=== PATIENT | female | born 1965 | race Caucasian/White ===

== ENCOUNTER 2017-09-02 07:30 | Inpatient (IN) ==
[2017-08-26 12:40] LABS: Appearance,Urine CLEAR; Bacteria,Urine 0 /hpf (0); Bilirubin,Urine NEG (NEG); Color,Urine YELLOW; Glucose,Urine (UA) 50 mg/dL (NEG); Leukocyte Esterase,Urine 25 /uL (NEG); Mucus,Urine FEW /hpf (0); Protein,Urine NEG (NEG); Specific Gravity,Urine 1.016 (1.000-1.035); Urine Blood NEG mg/dL (<0.03); Urine RBC 1 /hpf (0-1); Urine Squamous Epithelial Cell 2 /hpf (0-4); Urine WBC 3 /hpf (0-4); Urobilinogen,Urine NEG (NEG)
[2017-08-26 13:52] LABS: Basophils # (Auto) 0.1 K/mcL (0.0-0.3); Basophils % (Auto) 0.5 % (0.0-2.0); Eosinophils # (Auto) 0.4 K/mcL (0.0-0.7); Eosinophils % (Auto) 2.4 % (0.0-7.0); Granulocytes % (Auto) 71.7 % (38.0-78.0); Lymphocytes # (Auto) 2.9 K/mcL (1.5-4.8); Lymphocytes % (Auto) 18.7 % (15.5-49.0); Mean Cell Volume 87.5 fL (80.0-100.0); Mean Corpuscular HGB Conc 33.9 g/dL (31.0-36.0); Mean Corpuscular Hemoglobin 29.6 pg (26.0-34.0); Monocytes # (Auto) 1.1 K/mcL (0.1-0.9); Monocytes % (Auto) 6.7 % (1.0-12.0); Platelet Count 307 K/mcL (140-440); RBC 5.07 M/mcL (4.00-5.20); Red Cell Distribution Width 15.3 % (11.5-14.5)
[2017-08-26 14:07] LABS: Blood Urea Nitrogen 17 mg/dl (6-20)
[~2017-09-02 07:30] MED LIST: CELECOXIB 200 MG CAPSULE PO SCH; KETOROLAC 30 MG, ROPIVACAINE HCL/PF 49.5 ML, EPINEPHrine 0.5 MG, 0.9 % SODIUM CHLORIDE ... IJ SCH; PREGABALIN 75 MG CAPSULE PO SCH; ceFAZolin 1 GM VIAL IV SCH; oxyCODONE 10 MG TAB.ER.12H PO SCH
[2017-09-02] MEDS ORDERED: fentaNYL 250 MCG/5 ML VIAL IV ONE (13:30)
[2017-09-02] MEDS ORDERED: LIDOCAINE HCL/PF 100 MG/5 ML SYRINGE IV ONE (13:30)
[2017-09-02] MEDS ORDERED: PROPOFOL 200 MG/20 ML VIAL IV ONE (13:30)
[2017-09-02] MEDS ORDERED: MAGNESIUM SULFATE 2 GM/50 ML BAG IV ONE ×2 (13:30→14:37)
[2017-09-02] MEDS ORDERED: methylPREDNISolone SOD SUCC 125 MG/2 ML VIAL IV ONE (13:30)
[2017-09-02] MEDS ORDERED: DEXAMETHASONE 10 MG/ML VIAL IV ONE (13:30)
[2017-09-02] MEDS ORDERED: GLYCOPYRROLATE 0.2 MG/ML VIAL IV ONE (13:30)
[2017-09-02] MEDS ORDERED: ROPIVACAINE HCL/PF 20 ML VIAL IJ ONE (13:30)
[2017-09-02] MEDS ORDERED: KETAMINE 100 MG/ML ML IV ONE (13:30)
[2017-09-02] MEDS ORDERED: TRANEXAMIC ACID 1,000 MG/10 ML VIAL IV ONE (13:30)
[2017-09-02] MEDS ORDERED: MIDAZOLAM 5 MG/5 ML VIAL IV ONE (13:30)
[2017-09-02] MEDS ORDERED: ESMOLOL 100 MG/10 ML VIAL IV ONE (13:30)
[2017-09-02] MEDS ORDERED: TERBUTALINE 1 MG/ML VIAL SQ ONE (14:37)
[2017-09-02] MEDS ORDERED: TRANEXAMIC ACID 1,000 MG/10 ML VIAL IV SCH (15:05)
[2017-09-02] MEDS ORDERED: BENZOCAINE/MENTHOL 1 LOZENGE PO PRN ×2 (15:05→17:20)
[2017-09-02] MEDS ORDERED: ONDANSETRON 4 MG/2 ML VIAL IV PRN ×3 (15:05→17:20)
[2017-09-02] MEDS ORDERED: BISACODYL 10 MG SUPP.RECT PR PRN ×2 (15:05→17:20)
[2017-09-02] MEDS ORDERED: MAGNESIUM HYDROXIDE 30 ML ORAL.SUSP PO PRN ×2 (15:05→17:20)
[2017-09-02] MEDS ORDERED: POLYETHYLENE GLYCOL 3350 17 GM PACKET PO PRN ×2 (15:05→17:20)
[2017-09-02] MEDS ORDERED: HYDROcodone/APAP 10/325MG TABLET PO PRN (15:05)
[2017-09-02] MEDS ORDERED: FLEETS ADULT ENEMA PR PRN ×2 (15:05→17:20)
--- NOTE | 2017-09-02 15:05 | Brief Operative Note ---
Date of procedure: 09/02/17 Pre-op diagnosis: Left knee DJD Post-op diagnosis: same Procedure: Left robotic assisted total knee arthroplasty Grafts/Implants: Yes (Angel 4 femur, 3 tibia, 9mm insert, 33 patella) Anesthesia: spinal, GLMA Findings: arthritis Complications: none Surgeon: Celso Coe Gel Coat Sprayer: Adam Brunner Estimated blood loss (cc): 30 Specimens Removed/Pathology: none sent Condition: stable Disposition: PACU
[2017-09-02] MEDS ORDERED: IPRATROPIUM/ALBUTEROL 3 ML AMPUL.NEB NEB ONE (15:07)
[2017-09-02] MEDS ORDERED: DEXTROSE 50% 50 ML VIAL IV PRN ×2 (15:10→17:20)
[2017-09-02] MEDS ORDERED: DEXTROSE 31 GM ORAL.SUSP PO PRN ×2 (15:10→17:20)
[2017-09-02] MEDS ORDERED: 0.9 % SODIUM CHLORIDE 1,000 ML IV SCH ×2 (15:15→17:20)
[2017-09-02] MEDS ORDERED: RACEPINEPHRINE 0.5 ML AMPUL.NEB ONE (15:36)
[2017-09-02] MEDS ORDERED: ATROPINE SULFATE 0.4 MG/ML VIAL IV PRN (15:41)
[2017-09-02] MEDS ORDERED: diphenhydrAMINE 50 MG/ML VIAL IV PRN (15:41)
[2017-09-02] MEDS ORDERED: METOPROLOL TARTRATE 5 MG/5 ML VIAL IV PRN (15:41)
[2017-09-02] MEDS ORDERED: ePHEDrine 50 MG/ML AMPUL IV PRN (15:41)
[2017-09-02] MEDS ORDERED: METHOCARBAMOL 1,000 MG/10 ML VIAL IV PRN (15:41)
[2017-09-02] MEDS ORDERED: FLUMAZENIL 0.1 MG/ML ML IV PRN (15:41)
[2017-09-02] MEDS ORDERED: IPRATROPIUM/ALBUTEROL 3 ML AMPUL.NEB NEB PRN ×2 (15:41→15:49)
[2017-09-02] MEDS ORDERED: NALOXONE HCL 0.4 MG/ML VIAL IV PRN (15:41)
[2017-09-02] MEDS ORDERED: fentaNYL 100 MCG/2 ML VIAL IV PRN (15:41)
[2017-09-02] MEDS ORDERED: ACETAMINOPHEN 1,000 MG/100 ML BOTTLE IV ONE (15:41)
[2017-09-02] MEDS ORDERED: FLUMAZENIL 0.1 MG/ML ML IV ONE (15:45)
[2017-09-02] MEDS ORDERED: LACTATED RINGERS 1,000 ML IV SCH (15:45)
[2017-09-02] MEDS ORDERED: ONDANSETRON ODT 4 MG TABLET SL PRN ×2 (15:49→17:20)
--- NOTE | 2017-09-02 16:10 | XRay Report ---
INDICATION: Hypoxia. Status post knee arthroplasty TECHNIQUE: AP chest x-ray,semiupright portable COMPARISON: Previous chest x-rays dated 04/01/2017, 09/27/2016, 12/07/2015 FINDINGS:Prominent pulmonary vascularity consistent with pulmonary congestion. There is mild bronchial wall thickening. Findings are consistent with mild interstitial edema. No alveolar edema. No consolidation. No pneumothorax. IMPRESSION: 1. Findings consistent with interstitial pulmonary edema. 2. No acute pulmonary congestion. Interpreted and Authenticated by: Geo Rodriguez 09/02/17
--- NOTE | 2017-09-02 16:31 | XRay Report ---
CLINICAL INFORMATION: Postsurgical follow-up TECHNIQUE: Portable AP, crosstable lateral, patellar views COMPARISON: None. FINDINGS: Status post left total knee arthroplasty. Prosthetic complements are in anatomic positions. There is soft tissue and intra-articular gas. There are skin hudson anteriorly. IMPRESSION: Status post left total knee arthroplasty Interpreted and Authenticated by: Geo Rodriguez 09/02/17
[2017-09-02] MEDS ORDERED: KETOROLAC 30 MG/ML VIAL IV ONE (16:36)
[2017-09-02] MEDS ORDERED: INSULIN LISPRO 1 UNIT/0.01 ML UNIT SQ SCH (17:00)
[2017-09-02] MEDS ORDERED: OMEPRAZOLE 20 MG CAPSULE PO SCH (17:00)
[2017-09-02] MEDS ORDERED: ACETAMINOPHEN 650 MG/65 ML BOTTLE IV PRN (17:20)
[2017-09-02] MEDS ORDERED: metFORMIN 500 MG TABLET PO SCH (17:30)
[2017-09-02] MEDS ORDERED: CARVEDILOL 12.5 MG TABLET PO SCH (17:30)
--- NOTE | 2017-09-02 18:28 | Consultation ---
DATE OF CONSULTATION: 09/02/2017 DATE OF CONSULTATION: 09/02/2017 REASON FOR CONSULTATION: Postoperative hypoxia, shallow breathing, confused state. REQUESTING PHYSICIAN: Celso Coe MD HISTORY OF CHIEF COMPLAINT: The patient is a 52-year-old with known history of COPD, DM type 2/hypertension and degenerative joint disease who underwent left robotic-assisted total knee arthroplasty. However, during the postoperative phase, the patient became increasingly short of breath along with increasing somnolence. The patient had a stat ABG done which revealed 7.34/51/51 on 7 liters oxygen. Because of concerns of severe hypoxia, x-ray was done which revealed bilateral infiltrates suggestive of pulmonary edema, received dose of Lasix and subsequently Hospitalist Service was consulted. At the time of evaluation, the patient is starting to wake up from postoperative anesthesia. She is currently started on noninvasive ventilation in light of hypercapnic acidosis and profound hypoxemia. She was able to answer some of the questions. She denies chest pain. She frequently dozes off but is able to tolerate BiPAP. Most of the history was obtained from review of medical records. The patient is immediate postop under sedation and unable to provide any history. She, however, denies headache, vision changes, endorses shortness of breath. REVIEW OF SYSTEMS: Ten-point review of system was attempted, could not be performed. PAST MEDICAL HISTORY: 1. History of diabetes mellitus type 2. 2. Degenerative joint disease. 3. Obesity. 4. COPD. 5. Peptic ulcer disease. 6. Anxiety disorder. 7. Hypertension. CURRENT MEDICATIONS: 1. Amitriptyline 25. 2. Amlodipine 5 twice daily. 3. Bupropion 150 mg twice daily. 4. Coreg 12.5 twice daily. 5. Duloxetine 60 at bedtime. 6. 20 twice daily. 7. Sucralfate 1 gram daily. 8. Hydrocodone/acetaminophen 10/325 mg every 4 hours as needed. 9. Glargine 14 units subcu daily. 10. Metformin 1000 twice daily. 11. Zofran 4 every 4 hours as needed. 12. Pramipexole 0.5 twice daily. 13. Tizanidine 4 mg three times daily. ALLERGIES: 1. BUPRENORPHINE. 2. LOSARTAN. 3. MIDAZOLAM. 4. HYDROCHLOROTHIAZIDE. SOCIAL HISTORY: Reviewed from medical records. The patient is and lives alone. She is retired, has one child. Every day smoker carrying over a [id number] history of smoking. No history of alcoholism or substance abuse. FAMILY HISTORY: Extensive with diabetes mellitus type 2, hypertension, coronary artery disease along with cancer in father, sister with bone cancer, diabetes, hypertension. Mother with diabetes, coronary artery disease, hypertension and renal cell carcinoma. PAST SURGICAL HISTORY: 1. Hysterectomy in 1996. 2. Left knee surgery 1999. 3. Shoulder surgery 2007 involving right AC joint repair. 4. Left knee arthroscopy 2016. 5. Right foot surgery 2014. PHYSICAL EXAMINATION: GENERAL: The patient is sedated currently on BiPAP, able to respond to verbal commands, open eyes to verbal stimulus. BMI 34.9. Height 5 feet 6 inches. VITAL SIGNS: Blood pressure 123/98, respiratory rate 15, temperature 98.1, pulse 96, sats 99 percent on 40 percent FIO2 BiPAP. HEENT: Pupils symmetric. Oral cavity is dry. No ear or nose discharge. Head is normocephalic and atraumatic. NECK: No lymphadenopathy. CHEST: S1, S2, tachycardia. ESM grade 1. Diminished breath sounds at bases. ABDOMEN: Soft. LOWER EXTREMITIES: No cyanosis, clubbing, edema. Left lower extremity covered in postoperative dressing. PSYCH: Sedated but responds to verbal commands. No agitation. NEURO: Nonfocal moving all 4 extremities, responding appropriately to verbal commands. SKIN: No suspicious lesion. LABS: Stat labs pending. ABG 7.34/51/51 on 7 liters oxygen. Repeat ABG pending. X-RAY CHEST: Interstitial pulmonary edema. ASSESSMENT AND PLAN: 1. A 52-year-old with acute hypoxic hypercapnic respiratory failure, postoperative phase. 2. Hospitalist consultation for acute hypoxic hypercapnic respiratory failure. Start patient on noninvasive ventilation. The patient is more awake after Versed reversal. Continue noninvasive ventilation, check a repeat ABG in half an hour. Continue close monitoring in telemetry. Likely secondary to intraoperative stress with volume overload. The patient was started on Lasix with target to clear interstitial edema as seen on imaging. blood work along with repeat ABG in half an hour. The patient will be transferred to telemetry unit. Continue BiPAP to ensure ventilation and reversal of hypercapnia and hypoxia. 3. Other prior medical issues will be restarted on home medications, includinA. Anxiety disorder, started on bupropion, Cymbalta. 3B. History of diabetes mellitus type 2. Continue basal prandial insulin. 3C. Pain management will be on as-needed opioids. 3D. Hypertension will be continued on Coreg/amlodipine. 3E. History of peptic ulcer disease. Continue sucralfate/proton pump inhibitor. 3F. Deep venous thrombosis prophylaxis will be as per orthopedics. CODE STATUS: FULL CODE Overall, a high-complexity consult in this patient with hypercapnic hypoxic respiratory failure requiring noninvasive ventilation. TIME SPENT: Over 35 minutes CC timein evaluating labs and imaging, blood gases, management of noninvasive ventilation, care coordination and transferring patient to telemetry unit. AA:ken Job ID: [id number] Doc ID: [id number] Mino Porter MD MTDHoa
[2017-09-02 18:29] LABS: Mean Cell Volume 86.3 fL (80.0-100.0); Mean Corpuscular HGB Conc 33.4 g/dL (31.0-36.0); Mean Corpuscular Hemoglobin 28.8 pg (26.0-34.0); Platelet Count 287 K/mcL (140-440); RBC 5.36 M/mcL (4.00-5.20); Red Cell Distribution Width 15.4 % (11.5-14.5)
[2017-09-02 18:52] LABS: ALT/SGPT 37 U/l (0-40); Albumin 4.3 gm/dL (3.2-5.2); Albumin/Globulin Ratio 1.4 (1.0-2.3); Alkaline Phosphatase 73 U/L (39-117); Bilirubin,Direct < 0.2 mg/dL (0.0-0.3); Blood Urea Nitrogen 18 mg/dl (6-20); Gamma Glutamyl Transpeptidase 35 U/L (5-36); Uric Acid 5.2 mg/dL (2.5-8.0)
[2017-09-02 19:01] LABS: Band Neutrophils % 9 % (0-10); Eosinophils % (Manual) 2 % (0-7); Lymphocytes % 8 % (15-49); Monocytes % (Manual) 2 % (1-12); Platelet Estimate NORMAL (NORMAL); RBC Morphology NORMAL (NORMAL); Segmented Neutrophils % 79 % (38-78)
[2017-09-02] MEDS: CARVEDILOL 12.5 MG TABLET PO SCH (19:34)
[2017-09-02] MEDS: metFORMIN 500 MG TABLET PO SCH (19:34)
[2017-09-02] MEDS: PRAMIPEXOLE 0.25 MG TABLET PO SCH (20:41)
[2017-09-02] MEDS: buPROPion 150 MG TAB.SR.12H PO SCH (20:42)
[2017-09-02] MEDS: amLODIPine 5 MG TABLET PO SCH (20:42)
[2017-09-02] MEDS: ASPIRIN 325 MG ENTERIC COATED TABLET PO SCH (20:43)
[2017-09-02] MEDS: ceFAZolin 1 GM VIAL IV SCH (20:43)
[2017-09-02] MEDS: DOCUSATE SODIUM 100 MG CAPSULE PO SCH (20:43)
[2017-09-02] MEDS: 0.9 % SODIUM CHLORIDE 10 ML SYRINGE IV SCH (20:44)
[2017-09-02] MEDS: tiZANidine 4 MG TABLET PO SCH (20:44)
[2017-09-02] MEDS: INSULIN LISPRO 1 UNIT/0.01 ML UNIT SQ SCH (20:44)
[2017-09-02] MEDS ORDERED: buPROPion 150 MG TAB.SR.12H PO SCH (21:00)
[2017-09-02] MEDS ORDERED: amLODIPine 5 MG TABLET PO SCH (21:00)
[2017-09-02] MEDS ORDERED: SENNOSIDES 1 TABLET PO SCH ×2 (21:00)
[2017-09-02] MEDS ORDERED: DOCUSATE SODIUM 100 MG CAPSULE PO SCH (21:00)
[2017-09-02] MEDS ORDERED: tiZANidine 4 MG TABLET PO SCH (21:00)
[2017-09-02] MEDS ORDERED: PRAMIPEXOLE 0.25 MG TABLET PO SCH (21:00)
[2017-09-02] MEDS ORDERED: DULoxetine 30 MG CAPSULE PO SCH ×2 (21:00)
[2017-09-02] MEDS ORDERED: ASPIRIN 325 MG ENTERIC COATED TABLET PO SCH (21:00)
[2017-09-02] MEDS ORDERED: ceFAZolin 1 GM VIAL IV SCH (21:00)
[2017-09-02] MEDS ORDERED: AMITRIPTYLINE 25 MG TABLET PO SCH ×2 (21:00)
[2017-09-02] MEDS: NICOTINE 21 MG PATCH TOPICAL SCH (21:04)
[2017-09-02] MEDS ORDERED: 0.9 % SODIUM CHLORIDE 10 ML SYRINGE IV SCH (22:00)
[2017-09-03] MEDS: HYDROcodone/APAP 10/325MG TABLET PO PRN ×3 (00:33→08:39)
[2017-09-03] MEDS: 0.9 % SODIUM CHLORIDE 10 ML SYRINGE IV SCH ×2 (04:09→08:38)
[2017-09-03] MEDS: ceFAZolin 1 GM VIAL IV SCH (04:09)
[2017-09-03 05:26] LABS: Mean Cell Volume 87.7 fL (80.0-100.0); Mean Corpuscular HGB Conc 33.9 g/dL (31.0-36.0); Mean Corpuscular Hemoglobin 29.8 pg (26.0-34.0); Platelet Count 302 K/mcL (140-440); RBC 4.74 M/mcL (4.00-5.20); Red Cell Distribution Width 15.4 % (11.5-14.5)
[2017-09-03 06:15] LABS: ALT/SGPT 32 U/l (0-40); Albumin 4.1 gm/dL (3.2-5.2); Albumin/Globulin Ratio 1.5 (1.0-2.3); Alkaline Phosphatase 61 U/L (39-117); Bilirubin,Direct < 0.2 mg/dL (0.0-0.3); Blood Urea Nitrogen 22 mg/dl (6-20); Gamma Glutamyl Transpeptidase 35 U/L (5-36); Uric Acid 6.1 mg/dL (2.5-8.0)
[2017-09-03] MEDS ORDERED: OMEPRAZOLE 20 MG CAPSULE PO SCH (07:30)
--- NOTE | 2017-09-03 07:41 | Operative Note ---
DATE OF OPERATION: 09/02/2017 PREOPERATIVE DIAGNOSIS: Left knee osteoarthritis. POSTOPERATIVE DIAGNOSIS: Left knee osteoarthritis. PROCEDURE PERFORMED: Left robotic-assisted total knee arthroplasty placing a Angel Triathlon size 4 cruciate retaining femoral component, size 3 tibial baseplate, a 9 mm X3 tibial insert and a 33 mm patellar button. SURGEON: Celso Coe MD. FISCAL TECHNICIAN: Jaime Brunner PA-C. ANESTHESIA: Spinal plus general. DRAINS: None. SPECIMENS: Bone cuts, which were discarded. BLOOD LOSS: 30 mL COMPLICATIONS: None. POSTOPERATIVE CONDITION: Stable. INDICATIONS FOR SURGERY: This is a 52-year-old female who had left knee pain after an injury. She underwent a knee arthroscopy with partial meniscectomy; however, she did poorly afterwards. This failed conservative treatment and repeat radiographs were obtained which showed a rapid progression of the arthrosis with bone on bone contact. FINDINGS AT SURGERY: Advanced arthrosis. Post implantation showed good overall limb alignment and patellar tracking. PROCEDURE IN DETAIL: The patient had been seen preoperatively. Informed consent had been obtained after discussion of risks, benefits of surgery. Risks including, but not limited to, bleeding, possibly requiring transfusion; infection, possibly requiring implant removal and prolonged IV antibiotics; injury to nerves, blood vessels, and other surrounding structures; anesthetic risks; incomplete or no resolution of symptoms; stiffness, pain, swelling, instability; DVT and pulmonary embolus risks; and the possibility of needing further revision surgery. She understood these risks and wished to proceed. Correct operative site was marked. The patient received spinal anesthesia. She was then taken to the operating room and LMA general given. The left lower extremity was carefully prepped and draped in normal sterile fashion and a timeout was performed verifying patient name, operative site, and plan. Esmarch was used to exsanguinate the extremity and tourniquet was inflated. Midline incision was made with a scalpel through skin and subcutaneous tissue. IrriSept was irrigated and then a medial parapatellar arthrotomy performed. Subperiosteal exposure was done the anterior medial tibia and the distal anterior cortex of the femur. ACL was transected and anterior horns of the menisci removed as well as retropatellar fat pad. We then made two stab incisions over the femur and two over the tibia and bicortical pins were placed and the arrays were connected. We then placed our femoral and tibial checkpoints. Hip center of rotation was obtained and then a green probe used to check our medial and lateral malleoli as well as our double checks of our femoral and tibial checkpoints. Blue probe was then used to do our mapping. After this was completed, osteophytes were removed and then we checked our flexion, extension gaps with the spoons. We adjusted the implant, so we had as equal flexion and extension gaps as possible and then using the robotic assistance made our bone cuts. We then externally rotated the tibia as allowed with bone coverage and then pinned this. Boss reamer and keel punch were used to prepare the tibia and then a keeled tibial trial placed. Femur was elevated and curved osteotome used to remove any posterior osteophytes. We then went ahead and placed the femoral trial. This was pinned into place, placed flush along the lateral cortex of the femur and then peg holes were drilled. The 9 insert trial was placed and the knee was taken into extension. Patella was then measured, freehand cut and then holes were drilled for the patellar component medialized maximally. We then placed the patellar trial component and double checked our thickness to be within a millimeter of pre-resection and then performed a lateral facetectomy. We checked our patellar tracking, which was satisfactory, so we went ahead and removed trial components. We removed our checkpoints. The joint was irrigated with IrriSept while implants were opened. Antibiotic cement was mixed. We then pulse lavaged copiously with saline and then a CO2 gun was used to clean the cancellous bone surfaces. We made drill holes in the sclerotic areas and then cemented the tibia followed by the femur. Excess cement was removed and a 9 insert trial was placed. The knee was taken into extension. Patellar button was cemented. We then filled the joint with IrriSept and then removed our pins for the arrays. The joint was then injected with the pain cocktail into the pericapsular and subcutaneous tissues. After cement was fully hardened, we pulse lavaged copiously with saline and then flexed the knee up and did a final inspection and removal of cement. The 9 insert trial was removed. We checked an 11 just to see, but were unable to even get this in, so we opened a 9 insert. Posterior capsule was injected with pain cocktail and then IrriSept irrigated and then the definitive insert was impacted. After a minute we pulse lavaged with saline and then knee was taken to about 45 degrees of flexion. Interrupted [id number] #2 FiberWire was used around the superior quadrant of the patella, interrupted [id number] #1 Vicryls around the inferior quadrant, running #1 Vicryl was used for patellar tendon and quad tendon. Final IrriSept irrigation was done and after a minute final pulse lavage and then 2-0 Monocryl for subcutaneous and hudson for skin. Xeroform sterile dressings were applied. Tourniquet was released. The patient was awakened, extubated, and transferred to recovery in stable condition. BJYocasta:mike Job ID: [id number] Doc ID: [id number] Celso Coe MD
--- NOTE | 2017-09-03 07:43 | Discharge Summary ---
Providers - Providers Patient information: Note initiated : 09/03/17 at 7:40 am Service Date, if different from initiated Date: [] Patient: Miguelina Khan 52 y/o F admitted on 09/02/17 for Left Robotic Total Knee Arthroplasty. Chief Complaint: [] Discharge date: 09/03/17 Hospitalization Hospital course: Pt was admitted for a Total knee arthroplasty. Pt underwent the procedure on the day of admission. Pt spent one night on the floor for IV pain meds, IV abx, and PT. Pt discharged with ASA for DVT prophylaxis. She is on a pain contract and will get her pain meds from that provider. Discharge diagnosis: L knee OA Exam - Exam Clean and dry: Yes Weight bearing status: as tolerated Ortho Discharge - TKA - Patient Instructions Diet: Regular Diet Activity: activity as tolerated, weight bearing as tolerated Total Knee Protocol: For Total Knee: Start ROM BEAN with stationary bike or rocking chair. Work on gaining full extension of knee. Posterior dislocation precautions provided. Hip abductor strengthening and gait training instructions provided. Apply Cryocuff as instructed. Dressing Care: May shower in 2 days - Follow Up Plan Follow Up Appointments: Celso Coe MD [Physician] - 09/17/17 10:00 am Disposition: Home, Self-Care Prognosis: Good Rehab Potential: Good Overall status at discharge: patient is progressing back to baseline - Orders For Discharge Prescriptions: Aspirin [Ecotrin] 325 mg PO BID #30 tab.ec Pending Studies Resuscitation Status Full Code Diet Consistent Carbohydrate Diet Start ThuSep 02 Dinner Hydrocodone Bitart/Acetaminophen ([place] 10/325mg) 0 tab PO Q4HP PRN PRN Reason: PAIN LEVEL 3-6 Last Admin: 09/03/17 04:08 Dose: 2 tab Admin: 09/03/17 00:33 Dose: 2 tab Amitriptyline HCl (Elavil) 25 mg PO HS [facility] Last Admin: 09/02/17 20:43 Dose: 25 mg Amlodipine Besylate (Norvasc) 5 mg PO BID [facility] Last Admin: 09/02/17 20:42 Dose: 5 mg Aspirin (Ecotrin) 325 mg PO BID [facility] Last Admin: 09/02/17 20:43 Dose: 325 mg Bupropion HCl (Wellbutrin Sr) 150 mg PO BID [facility] Last Admin: 09/02/17 20:42 Dose: 150 mg Carvedilol (Coreg) 12.5 mg PO BIDCC [facility] Last Admin: 09/02/17 19:34 Dose: 12.5 mg Diagnostic Test (Pha) (Accu-Chek) 1 each FS ACHS [facility] Last Admin: 09/03/17 07:38 Dose: 1 each Admin: 09/02/17 20:43 Dose: 1 each Admin: 09/02/17 19:34 Dose: 1 each Docusate Sodium (Colace) 100 mg PO BID [facility] Last Admin: 09/02/17 20:43 Dose: 100 mg Duloxetine HCl (Cymbalta) 60 mg PO HS [facility] Last Admin: 09/02/17 20:42 Dose: 60 mg Insulin Human Lispro (Humalog) 0 unit SQ [facility] PRN Reason: Protocol Last Admin: 09/02/17 20:44 Dose: 9 unit Metformin HCl (Glucophage) 1,000 mg PO BIDCC [facility] Last Admin: 09/02/17 19:34 Dose: 1,000 mg Nicotine (Nicoderm) 21 mg TOPICAL DAILY@1000 [facility] Last Admin: 09/02/17 21:04 Dose: 21 mg Omeprazole (Prilosec) 20 mg PO BIDAC [facility] Last Admin: 09/03/17 07:39 Dose: 20 mg Pramipexole Dihydrochloride (Mirapex) 0.5 mg PO BID [facility] Last Admin: 09/02/17 20:41 Dose: 0.5 mg Senna (Senokot) 2 tab PO HS [facility] Last Admin: 09/02/17 20:41 Dose: 2 tab Sodium Chloride (Saline Flush) 10 ml IV Q8 [facility] Last Admin: 09/03/17 04:09 Dose: 10 ml Admin: 09/02/17 20:44 Dose: 10 ml Tizanidine HCl (Zanaflex) 4 mg PO TID [facility] Last Admin: 09/02/17 20:44 Dose: 4 mg Shift Summary 09/03/17 03:46 Shift Summary by Donnell Sage Addendum entered by Donnell Sage 09/03/17 05:19: no ABGs ordered this AM, only CBC and IP collected, Fi02 at 21% with sats 98-100 % Original Note: hypoxia/respiratory depression/lethargy noted in surgery, CXR noted pulmonary edema, lasix given and patient placed on BiPAP, 2nd ABG draw was much improved but wanted pt to remain on BiPAP t/o night, she is alert and oriented and up w/SBA and FWW, gait steady, voiding per BR QS PVR very minimal, sats on RA while awake remain high 90's, home CPAP in room, BiPAP settings 10/5, Fi02 at 20 % sats high 90's, HR 80's, using IS on own reaching [id number], lungs remain clear but does have a moist cough, nicotine patch placed last night, medicated with norco 10/325mg 2 tabs x2 thus far, DSG CDI, cryo used on/off, SL to LH flushed and patent, pt hoping to d/c home today- dtr supportive and helpful, SR Initialized on 09/03/17 03:46 - END OF NOTE
[2017-09-03] MEDS ORDERED: FUROSEMIDE 20 MG/2 ML VIAL IV ONE (08:13)
[2017-09-03 08:24] LABS: Band Neutrophils % 4 % (0-10); Lymphocytes % 6 % (15-49); Monocytes % (Manual) 4 % (1-12); Platelet Estimate NORMAL (NORMAL); RBC Morphology NORMAL (NORMAL); Segmented Neutrophils % 85 % (38-78)
--- NOTE | 2017-09-03 08:27 | Internal Med Progress Note ---
Medical - Auxillary Note - Subjective Patient Information: Note initiated : 09/03/17 at 8:27 am Service Date, if different from initiated Date: [] Patient: Miguelina Khan 52 y/o F admitted on 09/02/17 for Left Robotic Total Knee Arthroplasty. Chief Complaint: [] Vital Signs Temp Pulse Resp BP Pulse Ox 98.9 F 83 16 115/78 96 09/03/17 07:41 09/03/17 07:41 09/03/17 07:41 09/03/17 07:41 09/03/17 07:41 Period Temp Pulse Resp BP Sys/Burger Pulse Ox Last 24 Hr 97.9 F-99.2 F 77-103 12-28 82-152/65-107 88-100 Intake and Output 09/02/17 09/03/17 09/03/17 21:59 05:59 13:59 Intake Total 2735 / 2735 1360 / 1360 Output Total 1601 / 1601 150 / 150 350 / 350 Balance 1134 / 1134 1210 / 1210 -350 / -350 Weight 227 lb Medications Hydrocodone Bitart/Acetaminophen ([place] 10/325mg) 0 tab PO Q4HP PRN PRN Reason: PAIN LEVEL 3-6 Last Admin: 09/03/17 04:08 Dose: 2 tab Amitriptyline HCl (Elavil) 25 mg PO HS [facility] Last Admin: 09/02/17 20:43 Dose: 25 mg Amlodipine Besylate (Norvasc) 5 mg PO BID [facility] Last Admin: 09/02/17 20:42 Dose: 5 mg Aspirin (Ecotrin) 325 mg PO BID [facility] Last Admin: 09/02/17 20:43 Dose: 325 mg Bisacodyl (Dulcolax) 10 mg GA Q2-3DAYS PRN PRN Reason: Constipation Bupropion HCl (Wellbutrin Sr) 150 mg PO BID [facility] Last Admin: 09/02/17 20:42 Dose: 150 mg [facility] Last Admin: 09/02/17 19:34 Dose: 12.5 mg Dextrose (Dextrose 50%) 0 ml IV UD PRN PRN Reason: Hypoglycemia Diagnostic Test (Pha) (Accu-Chek) 1 each FS ACHS [facility] Last Admin: 09/03/17 07:38 Dose: 1 each Docusate Sodium (Colace) 100 mg PO BID [facility] Last Admin: 09/02/17 20:43 Dose: 100 mg Duloxetine HCl (Cymbalta) 60 mg PO HS [facility] Last Admin: 09/02/17 20:42 Dose: 60 mg Ergocalciferol (Drisdol) 50,000 unit PO Mo@0900 [facility] Glucose (Insta-Glucose) 15 gm PO PRN PRN PRN Reason: Hypoglycemia Acetaminophen (Ofirmev) 650 mg in 65 mls @ 130 mls/hr IV Q6HP PRN PRN Reason: PAIN/FEVER > 101 Insulin Glargine (Lantus) 14 unit SQ DAILY@1400 [facility] Insulin Human Lispro (Humalog) 0 unit SQ [facility] PRN Reason: Protocol Last Admin: 09/02/17 20:44 Dose: 9 unit Magnesium Hydroxide (Milk Of Magnesia) 30 ml PO BIDP PRN PRN Reason: Constipation Metformin HCl (Glucophage) 1,000 mg PO BIDCC [facility] Last Admin: 09/02/17 19:34 Dose: 1,000 mg Morphine Sulfate (Morphine) 0 mg IV Q1HP PRN PRN Reason: PAIN LEVEL > 6 Nicotine (Nicoderm) 21 mg TOPICAL DAILY@1000 [facility] Last Admin: 09/02/17 21:04 Dose: 21 mg Omeprazole (Prilosec) 20 mg PO BIDAC [facility] Last Admin: 09/03/17 07:39 Dose: 20 mg Ondansetron HCl (Zofran) 4 mg IV Q4HP PRN PRN Reason: Nausea And Vomiting Ondansetron HCl (Zofran Odt) 4 mg SL Q4HP PRN PRN Reason: Nausea Polyethylene Glycol (Miralax) 17 gm PO DAILYP PRN PRN Reason: Constipation Pramipexole Dihydrochloride (Mirapex) 0.5 mg PO BID [facility] Last Admin: 09/02/17 20:41 Dose: 0.5 mg Senna (Senokot) 2 tab PO [facility] Last Admin: 09/02/17 20:41 Dose: 2 tab Sodium Biphosphate/Sodium Phosphate (Fleets Adult) 1 dose GA Q3-4DAYS PRN PRN Reason: Constipation Sodium Chloride (Saline Flush) 10 ml IV Q8 [facility] Last Admin: 09/03/17 04:09 Dose: 10 ml Sucralfate (Carafate) 1 gm PO QDAY [facility] Throat Lozenges (Cepacol) 1 lozenge PO PRN PRN PRN Reason: Sore Throat Tizanidine HCl (Zanaflex) 4 mg PO TID [facility] Last Admin: 09/02/17 20:44 Dose: 4 mg Result [facility] 09/03/17 04:15 09/03/17 04:15 Abnormal Labs 09/03/17 09/03/17 09/02/17 04:15 04:15 17:39 WBC 21.4 H RBC Hgb RDW 15.4 H Seg Neutrophils % 85 H Lymphocytes % 6 L Chloride 94 L Carbon Dioxide 21 L Anion Gap 19.0 H 17.0 H BUN 22 H Creatinine 1.2 H Glucose 200 H 207 H Calcium 8.4 L 8.5 L Magnesium 2.6 H Lactate Dehydrogenase 302 H 268 H Triglycerides 192 H 235 H 09/02/17 17:39 WBC 19.7 H RBC 5.36 H Hgb 15.5 H RDW 15.4 H Seg Neutrophils % 79 H Lymphocytes % 8 L Chloride Carbon Dioxide Anion Gap BUN Creatinine Glucose Calcium Magnesium Lactate Dehydrogenase Triglycerides Improved ABG post BiPAP 7.4/48/145 @ 60% FiO2 Plan * Wean BiPAP as tolerated * Ebenezer
[2017-09-03] MEDS: INSULIN LISPRO 1 UNIT/0.01 ML UNIT SQ SCH (08:36)
[2017-09-03] MEDS: metFORMIN 500 MG TABLET PO SCH (08:37)
[2017-09-03] MEDS: PRAMIPEXOLE 0.25 MG TABLET PO SCH (08:37)
[2017-09-03] MEDS: buPROPion 150 MG TAB.SR.12H PO SCH (08:37)
[2017-09-03] MEDS: CARVEDILOL 12.5 MG TABLET PO SCH (08:38)
[2017-09-03] MEDS: DOCUSATE SODIUM 100 MG CAPSULE PO SCH (08:38)
[2017-09-03] MEDS: ASPIRIN 325 MG ENTERIC COATED TABLET PO SCH (08:38)
[2017-09-03] MEDS: amLODIPine 5 MG TABLET PO SCH (08:38)
[2017-09-03] MEDS: tiZANidine 4 MG TABLET PO SCH (08:39)
[2017-09-03] MEDS ORDERED: SUCRALFATE 1 GM TABLET PO SCH ×2 (09:00)
[2017-09-03] MEDS: NICOTINE 21 MG PATCH TOPICAL SCH (09:12)
[2017-09-03] MEDS ORDERED: INSULIN GLARGINE, HUMAN 1 UNIT/0.01 ML SQ SCH ×2 (14:00)
[2017-09-07] MEDS ORDERED: ERGOCALCIFEROL (VITAMIN D2) 50,000 UNIT CAPSULE PO SCH ×2 (09:00)
== END 2017-09-03 10:50 | disposition home or self-care (01) | DRG 469 ==
LOC: MEDSUR 09:36 → EDSTATUS 11:30 → ICU 17:05
PROVIDERS: ADMIT Orthopaedic Surgery; ATTEND Orthopaedic Surgery

== ENCOUNTER 2024-08-08 17:05 | Inpatient (IN) ==
[2024-08-08] MEDS ORDERED: IOPAMIDOL 50 ML BOTTLE IV ONE (17:06)
[2024-08-08 17:58] LABS: Basophils # (Auto) 0.06 K/mcL (0.00-0.30); Basophils % (Auto) 0.3 % (0.0-2.0); Eosinophils # (Auto) 0.17 K/mcL (0.00-0.70); Eosinophils % (Auto) 0.9 % (0.0-7.0); Hematocrit 46.5 % (34.1-44.9); Hemoglobin 15.4 g/dL (11.2-15.7); Lymphocytes # (Auto) 2.12 K/mcL (1.50-4.80); Lymphocytes % (Auto) 10.7 % (15.5-49.0); Mean Cell Volume 92.4 fL (80.0-100.0); Mean Corpuscular HGB Conc 33.1 g/dL (31.0-36.0); Mean Platelet Volume 12.2 fL (8.8-12.5); Monocytes # (Auto) 1.95 K/mcL (0.10-0.90); Monocytes % (Auto) 9.8 % (1.0-12.0); Neutrophils % (Auto) 77.6 % (38.0-78.0); Platelet Count 209 K/mcL (140-440); RBC 5.03 M/mcL (3.59-5.38); Red Cell Distribution Width 16.7 % (11.5-14.5); WBC 19.9 K/mcL (4.5-11.0)
[2024-08-08] MEDS: 0.9 % SODIUM CHLORIDE 1,000 ML IV ONE ×2 (18:00→21:08)
[2024-08-08 18:17] LABS: ALT/SGPT 15 U/L (<40); AST/SGOT 18 U/L (<32); Albumin 3.8 gm/dL (3.2-5.2); Albumin/Globulin Ratio 1.1 (1.0-2.3); Alkaline Phosphatase 69 U/L (39-117); Bilirubin,Total 0.7 mg/dL (0.1-1.0); Blood Urea Nitrogen 31 mg/dL (6-20); Calcium 9.2 mg/dL (8.6-10.4); Carbon Dioxide 24 mmol/L (22-30); Chloride 97 mmol/L (96-108); Globulin 3.5 gm/dL (2.2-3.7); Glomerular Filtration Rate 38; Glucose 105 mg/dL (70-105); Potassium 4.7 mmol/L (3.3-5.1); Sodium 134 mmol/L (133-145)
[2024-08-08] MEDS: AZITHROMYCIN 500 MG in 0.9 % SODIUM CHLORIDE 250 ML IV ONE (18:45)
[2024-08-08] MEDS: cefTRIAXone 1 GM VIAL IV ONE (18:45)
[2024-08-08] MEDS: IPRATROPIUM/ALBUTEROL 3 ML AMPUL.NEB NEB ONE (22:13)
[2024-08-08] MEDS ORDERED: IPRATROPIUM/ALBUTEROL 3 ML AMPUL.NEB NEB PRN (22:17)
[2024-08-08] MEDS ORDERED: SENNOSIDES 1 TABLET PO PRN (22:17)
[2024-08-08] MEDS ORDERED: MAG HYDROX/AL HYDROX/SIMETH 30 ML ORAL.SUSP PO PRN (22:17)
[2024-08-08] MEDS ORDERED: ONDANSETRON 4 MG/2 ML VIAL IV PRN (22:17)
[2024-08-08] MEDS ORDERED: DEXTROSE 31 GM ORAL.SUSP PO PRN (22:22)
[2024-08-08] MEDS ORDERED: MELATONIN 3 MG TABLET PO PRN (22:22)
[2024-08-08] MEDS ORDERED: DEXTROSE 50% 50 ML VIAL IV PRN (22:22)
[2024-08-08] MEDS ORDERED: NICOTINE POLACRILEX 2 MG GUM CHEW/PARK PRN (22:45)
[2024-08-08] MEDS: IPRATROPIUM/ALBUTEROL 3 ML AMPUL.NEB NEB SCH (23:00)
[2024-08-08] MEDS: methylPREDNISolone SOD SUCC 125 MG/2 ML VIAL IV SCH (23:40)
[2024-08-08] MEDS: NICOTINE 14 MG PATCH TOPICAL SCH (23:40)
[2024-08-08] MEDS: NICOTINE 14 MG PATCH ONE (23:42)
[2024-08-08] MEDS: methylPREDNISolone SOD SUCC 125 MG/2 ML VIAL ONE (23:42)
[2024-08-09] MEDS: oxyCODONE IR 5 MG TABLET PO PRN (00:17)
[2024-08-09] MEDS: ATORVASTATIN 10 MG TABLET PO ONE (00:18)
[2024-08-09] MEDS: CITALOPRAM 20 MG TABLET PO ONE (00:18)
[2024-08-09] MEDS: PREGABALIN 150 MG CAPSULE PO ONE (00:19)
[2024-08-09] MEDS: ATORVASTATIN 10 MG TABLET ONE (00:41)
[2024-08-09] MEDS: oxyCODONE IR 5 MG TABLET PO ONE (00:42)
[2024-08-09] MEDS: IPRATROPIUM/ALBUTEROL 3 ML AMPUL.NEB NEB ONE (02:47)
[2024-08-09] MEDS: ACETAMINOPHEN 325 MG TABLET PO PRN (03:09)
[2024-08-09] MEDS: ACETAMINOPHEN 325 MG TABLET PO ONE (03:10)
[2024-08-09] MEDS: 0.9 % SODIUM CHLORIDE 10 ML SYRINGE IV SCH (06:31)
[2024-08-09 06:43] LABS: Basophils # (Auto) 0.02 K/mcL (0.00-0.30); Basophils % (Auto) 0.1 % (0.0-2.0); Eosinophils # (Auto) 0.01 K/mcL (0.00-0.70); Eosinophils % (Auto) 0.1 % (0.0-7.0); Hematocrit 46.2 % (34.1-44.9); Hemoglobin 15.1 g/dL (11.2-15.7); Lymphocytes # (Auto) 0.85 K/mcL (1.50-4.80); Lymphocytes % (Auto) 4.8 % (15.5-49.0); Mean Cell Volume 92.8 fL (80.0-100.0); Mean Corpuscular HGB Conc 32.7 g/dL (31.0-36.0); Mean Platelet Volume 12.7 fL (8.8-12.5); Monocytes # (Auto) 0.52 K/mcL (0.10-0.90); Monocytes % (Auto) 2.9 % (1.0-12.0); Neutrophils % (Auto) 91.2 % (38.0-78.0); Platelet Count 197 K/mcL (140-440); RBC 4.98 M/mcL (3.59-5.38); Red Cell Distribution Width 16.5 % (11.5-14.5); WBC 17.8 K/mcL (4.5-11.0)
[2024-08-09 07:02] LABS: Blood Urea Nitrogen 31 mg/dL (6-20); Calcium 9.1 mg/dL (8.6-10.4); Carbon Dioxide 22 mmol/L (22-30); Chloride 101 mmol/L (96-108); Glomerular Filtration Rate 38; Glucose 171 mg/dL (70-105); Potassium 5.1 mmol/L (3.3-5.1); Sodium 136 mmol/L (133-145)
[2024-08-09] MEDS: INSULIN LISPRO 1 UNIT/0.01 ML UNIT SQ SCH (07:46)
[2024-08-09] MEDS: PREGABALIN 100 MG CAPSULE PO SCH (09:09)
[2024-08-09] MEDS: ENOXAPARIN 40 MG/0.4 ML SYRINGE SQ SCH (09:09)
[2024-08-09] MEDS: SUMAtriptan SUCCINATE 50 MG TABLET PO PRN (19:17)
[2024-08-09] MEDS ORDERED: NON FORMULARY MEDICATION 1 DOSE MISCELL (Insulin Lispro [Humalog Kwikpen Insulin] 100 unit SUB-Q SCH (21:00)
[2024-08-09] MEDS ORDERED: CITALOPRAM 20 MG TABLET PO SCH (21:00)
[2024-08-09] MEDS: CITALOPRAM 20 MG TABLET PO SCH (21:33)
[2024-08-09] MEDS: guaiFENesin/CODEINE 10 ML UDC PO PRN (21:33)
[2024-08-09] MEDS: ATORVASTATIN 10 MG TABLET PO SCH (21:34)
[2024-08-09] MEDS: LYRICA 200 MG CAPSULE PO SCH (21:34)
[2024-08-09] MEDS: [UNRECOGNIZED DRUG - OTHER] ONE (21:39)
[2024-08-10 06:46] LABS: Basophils # (Auto) 0.02 K/mcL (0.00-0.30); Basophils % (Auto) 0.1 % (0.0-2.0); Eosinophils # (Auto) 0 K/mcL (0.00-0.70); Eosinophils % (Auto) 0 % (0.0-7.0); Hematocrit 48.9 % (34.1-44.9); Hemoglobin 16.1 g/dL (11.2-15.7); Lymphocytes # (Auto) 2.18 K/mcL (1.50-4.80); Lymphocytes % (Auto) 8.8 % (15.5-49.0); Mean Cell Volume 91.9 fL (80.0-100.0); Mean Corpuscular HGB Conc 32.9 g/dL (31.0-36.0); Mean Platelet Volume 12.9 fL (8.8-12.5); Monocytes # (Auto) 1.66 K/mcL (0.10-0.90); Monocytes % (Auto) 6.7 % (1.0-12.0); Neutrophils % (Auto) 82.7 % (38.0-78.0); Platelet Count 237 K/mcL (140-440); RBC 5.32 M/mcL (3.59-5.38); Red Cell Distribution Width 16.1 % (11.5-14.5); WBC 24.8 K/mcL (4.5-11.0)
[2024-08-10 06:54] LABS: Blood Urea Nitrogen 38 mg/dL (6-20); Calcium 9.9 mg/dL (8.6-10.4); Carbon Dioxide 24 mmol/L (22-30); Chloride 101 mmol/L (96-108); Glomerular Filtration Rate 49; Glucose 168 mg/dL (70-105); Potassium 4.7 mmol/L (3.3-5.1); Sodium 137 mmol/L (133-145)
[2024-08-10] MEDS ORDERED: [UNRECOGNIZED DRUG - OTHER] PO SCH (07:30)
[2024-08-10] MEDS ORDERED: OMEPRAZOLE 20 MG PO SCH (07:30)
[2024-08-10] MEDS: OMEPRAZOLE 20 MG CAPSULE PO SCH (07:54)
[2024-08-10] MEDS: FEXOFENADINE 180 MG TABLET PO SCH (09:06)
[2024-08-10] MEDS: BENZONATATE 100 MG CAPSULE PO SCH (09:06)
[2024-08-10] MEDS: ALLOPURINOL 300 MG TABLET PO SCH (09:06)
[2024-08-10] MEDS: VITAMIN D3 25 MCG TABLET PO SCH (09:06)
[2024-08-10] MEDS: Dapagliflozin Propanediol [Farxiga] 10 mg tablet PO SCH (09:07)
[2024-08-10] MEDS: INSULIN GLARGINE, HUMAN 1 UNIT/0.01 ML SQ SCH (09:07)
[2024-08-10] MEDS: IPRATROPIUM/ALBUTEROL 3 ML AMPUL.NEB NEB SCH (18:35)
[2024-08-10] MEDS: [UNRECOGNIZED DRUG - OTHER] ONE (20:26)
[2024-08-11] MEDS: predniSONE 20 MG TABLET PO SCH (05:27)
[2024-08-11 06:27] LABS: Blood Urea Nitrogen 40 mg/dL (6-20); Calcium 9.6 mg/dL (8.6-10.4); Carbon Dioxide 24 mmol/L (22-30); Chloride 104 mmol/L (96-108); Glomerular Filtration Rate 55; Glucose 109 mg/dL (70-105); Potassium 4.4 mmol/L (3.3-5.1); Sodium 140 mmol/L (133-145)
[2024-08-11 06:37] LABS: Basophils # (Auto) 0.03 K/mcL (0.00-0.30); Basophils % (Auto) 0.1 % (0.0-2.0); Eosinophils # (Auto) 0.01 K/mcL (0.00-0.70); Eosinophils % (Auto) 0 % (0.0-7.0); Lymphocytes % (Auto) 16.1 % (15.5-49.0); Mean Cell Volume 90.6 fL (80.0-100.0); Mean Corpuscular HGB Conc 33.3 g/dL (31.0-36.0); Mean Platelet Volume 12.3 fL (8.8-12.5); Monocytes # (Auto) 1.41 K/mcL (0.10-0.90); Monocytes % (Auto) 6.1 % (1.0-12.0); Neutrophils % (Auto) 74.4 % (38.0-78.0); Platelet Count 230 K/mcL (140-440); Red Cell Distribution Width 15.8 % (11.5-14.5); WBC 22.9 K/mcL (4.5-11.0)
[2024-08-11 11:34] VITALS: TEMP 97.9
[2024-08-11 13:31] VITALS: O2SAT 96
== END 2024-08-11 13:40 | disposition home or self-care (01) | DRG 190 ==
LOC: ED 17:05 → MEDSUR 23:14
PROVIDERS: ADMIT Student in an Organized Health Care Education/Training Program; ATTEND Student in an Organized Health Care Education/Training Program